=== PATIENT | male | born 1970 | race African-American/Black ===

== ENCOUNTER 2020-01-08 16:45 | Emergency (ER) | payer OTHER ==
[~2020-01-08] VITALS: Ht 175.3 cm; Wt 78.0 kg
[2020-01-08] MEDS ORDERED: LANTUS SUBQ (17:01)
[2020-01-08] MEDS ORDERED: NOVOLOG FL100 UNIT/M SUBQ (17:01)
[2020-01-08] MEDS ORDERED: IBUPROFEN 600600 M1 PO (19:33)
[2020-01-08 19:46] VITALS: BP 157/88
== END 2020-01-08 19:48 | disposition home or self-care (01) ==
LOC: ER 16:45
DX: S00.01XA Abrasion of scalp, initial encounter (principal); E11.65 Type 2 diabetes mellitus with hyperglycemia; J45.909 Unspecified asthma, uncomplicated; R41.0 Disorientation, unspecified; Z79.4 Long term (current) use of insulin; Z88.0 Allergy status to penicillin; V89.2XXA Person injured in unspecified motor-vehicle accident, traffic, initial encounter; Y93.I9 Activity, other involving external motion; Y92.488 Other paved roadways as the place of occurrence of the external cause; Y99.8 Other external cause status